=== PATIENT | male | born 1990 | race Caucasian/White ===

== ENCOUNTER 2018-09-08 10:12 | Emergency (ER) | payer OTHER, SELFPAY ==
[2018-09-08 10:13] VITALS: BP 140/97; PULSE 70; RESP 17; TEMP 36.4; O2SAT 99; BMI 21.7
--- NOTE | 2018-09-08 10:43 | CT_ITS ---
STUDY: CT BRAIN WITHOUT CONTRAST REASON FOR EXAM: Male, 28 years old. 3 day history of left-sided headaches. RADIATION DOSAGE (If Supplied By Facility): CTDIvol = ( 44.99 ) mGy, DLP = ( 796.11 ) mGycm TECHNIQUE: Transaxial CT imaging of the brain was performed without administration of intravenous contrast material. Individualized dose optimization techniques were used for this CT. COMPARISON: No relevant priors. FINDINGS: Normal soft tissue structures. Normal calvarium. Normal size ventricles and extra-axial spaces for the patient's age. Normal white matter tracts of the cerebral hemispheres. Normal basal ganglia and thalami. Normal brainstem. Normal cerebellum. There is no intracranial hemorrhage. There are no findings of an acute ischemic infarction. Normal visualized paranasal sinuses. CT/Brain/Head without Contrast IMPRESSION: Normal unenhanced CT scan of the brain. Electronically Signed: Charly Richmond, at 11:10 EDT , Service support ,
[2018-09-08] MEDS: DiphenhydrAMINE 50 MG/ML Syringe 25 MG IV (11:06)
[2018-09-08] MEDS: 0.9% Normal Saline 1,000 ML 999 ML IV (11:06)
[2018-09-08] MEDS: Metoclopramide 10 MG/2 ML Vial IV (11:07)
[2018-09-08] MEDS: Ketorolac 30 MG/ML Syringe 15 MG IV (11:07)
--- NOTE | 2018-09-08 11:21 | ED.DCSUM_ITS ---
History of Present Illness Chief Complaint: Headache Informant: Patient Onset: Days - 3 Context: Gradual Onset Timing: Intermittent Current Severity: Moderate Maximum Severity: Moderate Narrative: Patient presents with 3-day history of gradual onset of cephalgia it is left- sided associated with photophobia but no vision changes, he has an aching headache, throbbing. He has no vision changes, no neck pain. He has no fever or chills, this was gradual and not suddenly. He has had headaches over the past 6 months however this 1 is worse he has not seen anyone for these. Currently pain is moderate. Past Medical History - Allergies and Home Meds Allergies/Adverse Reactions: Allergies vancomycin Allergy (Verified 09/08/18 10:12) Hives Primary Care Physician: Care Physician,No Primary [Primary Care Provider] - Past Medical History: None Surgical History: noncontributory Smoking Status: Current every day smoker Review of Systems All systems negative except as indicated General: Denies: Chills, Fever Eyes: Reports: - - Photophobia as in HPI. Denies: Visual changes - bilaterally, Diplopia ENT: Denies: Rhinorrhea, Sore throat Cardiovascular: Denies: Chest pain, Palpitations Respiratory: Denies: Dyspnea, Cough, Dyspnea on exertion Gastrointestinal: Denies: Abdominal pain, Nausea, Vomiting, Diarrhea, Melena, Hematochezia Genitourinary: Denies: Dysuria, Hematuria, Frequency Musculoskeletal: Denies: Back pain, Extremity Pain Skin: Denies: Rash, Wounds Neurological: Reports: Headache. Denies: Weakness, Numbness Physical Exam Vital Signs/Narrative: Vital Signs Temp Pulse Resp BP Pulse Ox 09/08/18 10:13 97.6 F L 70 17 140/97 H 99 General: Well nourished, Well developed Head: Normocephalic Eyes: Perrl, EOMI ENT: Moist mucous membranes Cardiovascular: Regular rate, Regular rhythm Respiratory: No distress Abdomen: Soft Back: Nontender, Normal Inspection Extremities: Nontender Skin: Normal color Neurological: Alert, Oriented x3 Psychological: Normal affect Diagnostic/Tx/Re-eval - Medical Decision Making Patient has a negative CT, this is gradual in onset, no neurological findings on exam supple neck and no fever. No further treatment is needed. I treated him with Toradol Reglan and Benadryl as well as IV fluids improved I will discharge in stable condition. Disposition discharge stable condition ED Disposition - Plan for ED Patient: Disposition: Home or Assisted Living Instructions: HEADACHE, Unspecified Referrals: Shelley Bazzi MD [COURTESY STAFF PHYSICIAN] - 3-5 Days
[2018-09-08 11:52] VITALS: BP 129/77; PULSE 66; RESP 16; O2SAT 99
--- NOTE | 2018-09-08 11:53 | ED.RN ---
IV DC'ED, CATHETER INTACT, SMALL GAUZE DRESSING PLACED. DISCHARGE INSTRUCTIONS GIVEN TO AND REVIEWED WITH PATIENT, PATIENT DENIES QUESTIONS OR CONCERNS AND VOICES UNDERSTANDING OF DISCHARGE INSTRUCTIONS. PT AMBULATES OUT OF ROOM WITHOUT DIFFICULTY.
== END 2018-09-08 11:54 | disposition home or self-care (01) ==
PROVIDERS: Emergency Provider Emergency Medicine
DX: R51 Headache (principal); H53.149 Visual discomfort, unspecified; F17.200 Nicotine dependence, unspecified, uncomplicated
CPT/HCPCS: 70450; 96361; 96374; 96375; 99283

== ENCOUNTER 2018-11-21 09:22 | Emergency (ER) | payer OTHER, SELFPAY ==
[2018-11-21 09:22] VITALS: BP 124/81; PULSE 61; RESP 16; O2SAT 95
[2018-11-21 09:23] VITALS: BP 141/85; PULSE 74; RESP 17; TEMP 36.7; O2SAT 97; BMI 24.4
--- NOTE | 2018-11-21 09:34 | ED.DCSUM_ITS ---
History of Present Illness Chief Complaint: Ear Problem Informant: Patient Onset: Today Context: Gradual Onset Timing: Continuous Current Severity: Moderate Maximum Severity: Moderate Narrative: The patient presents to the emergency department for right ear pain. He states with this morning felt like he cannot hear anything out of his ear. He denies any fevers or chills. He states he put a Q-tip in it that was black stuff. He states that he thinks he got some water in his ear yesterday. Patient is otherwise healthy. Has not taken anything for symptoms. Prior similar symptoms: No Recent Illness/Hospitalization: No Past Medical History - Allergies and Home Meds Allergies/Adverse Reactions: Allergies vancomycin Allergy (Verified 11/21/18 09:22) Hives Primary Care Physician: Care Physician,No Primary [Primary Care Provider] - Prior records reviewed: Yes Past Medical History: None Surgical History: noncontributory Smoking Status: Current every day smoker Review of Systems General: Denies: Chills, Fever, Sweats Eyes: Denies: Visual changes - bilaterally, Diplopia ENT: Reports: Right ear pain. Denies: Rhinorrhea, Sore throat Cardiovascular: Denies: Chest pain, Palpitations Respiratory: Denies: Dyspnea, Cough, Dyspnea on exertion Gastrointestinal: Denies: Abdominal pain, Nausea, Vomiting, Diarrhea, Melena, Hematochezia Genitourinary: Denies: Dysuria, Hematuria, Frequency Musculoskeletal: Denies: Back pain, Extremity Pain Skin: Denies: Rash, Wounds Neurological: Denies: Headache, Weakness, Numbness Physical Exam Vital Signs/Narrative: Vital Signs Temp Pulse Resp BP Pulse Ox 11/21/18 09:23 98.0 F 74 17 141/85 H 97 Inital Vital Signs reviewed: Yes General: Well nourished, Well developed, No Acute Distress Head: Normocephalic, Atraumatic Eyes: Perrl, EOMI ENT: Moist mucous membranes, No rhinorrhea, - - Evidence of right otitis exte rna. TM is visible. There is no perforation. There is no mastoid tenderness. Neck: Supple, Nontender Cardiovascular: Regular rate, Regular rhythm, No murmurs Respiratory: No distress, CTA bilaterally, Chest nontender Abdomen: Soft, Nontender, Nondistended, Normal bowel sounds Back: Nontender, Normal Inspection Extremities: Nontender, No edema Skin: Normal color, No rash Neurological: Alert, Oriented x3, Cranial nerves II-XII grossly intact, Normal Strength, Normal Sensation Psychological: Normal affect, Normal Mood Diagnostic/Tx/Re-eval - Medical Decision Making The patient has evidence of an otitis externa of the right ear. There is no evidence of perforation. There is no impaction. Patient will be started on Cortisporin otic. He is given his first dose here. He will continue this. He was counseled concerning symptoms and reasons to return. He will be discharged home. Impression 1. Acute otitis externa of the right ear ED Disposition - Plan for ED Patient: Instructions: EXTERNAL EAR INFECTION (Adult) Prescriptions: Neomyc/Colist/Hydrocort/Thonzn [Cortisporin-Tc Ear Suspension] 10 ml RIGHT EAR [id number] #10 ml Prescription Printed Referrals: Care Physician,No Primary [Primary Care Provider] -
[2018-11-21] MEDS: Neomycin Sulfate/Polymyxin/Hc Susp 10 ML Bottle 4 DRP OTIC (09:59)
== END 2018-11-21 10:16 | disposition home or self-care (01) ==
LOC: ED 10:15
PROVIDERS: Emergency Provider Emergency Medicine
DX: H60.501 Unspecified acute noninfective otitis externa, right ear (principal); F17.200 Nicotine dependence, unspecified, uncomplicated
CPT/HCPCS: 99282